=== PATIENT | female | born 1975 ===

== ENCOUNTER 2018-10-14 06:15 | Day surgery (SDC) | payer OTHER ==
[~2018-10-14 06:15] MED LIST: AVAPRO150 MG PO
== END 2018-10-14 17:30 | disposition home or self-care (01) ==
LOC: CIR.AMB 06:15
DX: D12.9 Benign neoplasm of anus and anal canal (principal); K64.8 Other hemorrhoids; K64.4 Residual hemorrhoidal skin tags